=== PATIENT | male | born 1995 | race Two or more races ===

== ENCOUNTER 2021-03-23 18:14 | Emergency (ER) | payer SELFPAY ==
[~2021-03-23] VITALS: Ht 172.7 cm; Wt 97.0 kg
[2021-03-23 20:24] VITALS: BP 116/81
--- NOTE | 2021-03-23 20:24 | PHYS DOC ---
General Adult EDM: Chief Complaint: ANKLE PROBLEM HPI: HPI: Patient is a 25-year-old male presenting for right ankle injury. Patient is Malay-speaking only and history was obtained by myself with assistance using blue telephone law office assistant. Reports injury onset was yesterday evening while playing soccer. He suffered an inversion type ankle injury with right lateral ankle pain that is persisted. He is not taking anything since injury for this pain. Pain with palpation to right ankle and weightbearing makes worse, rest makes better. He has no other medical conditions, takes no medications on a daily basis Review of Systems: Review of Systems: Fourteen body systems of review of systems have been reviewed. See HPI for pertinent positives and negative responses, other parsons all other systems are negative, non-pertinent or non-contributory Heart Score: C/O Chest Pain: No Risk Factors: Risk Factors: DM, Current or recent (<one month) smoker, HTN, HLP, family history of CAD, obesity. Risk Scores: Score 0 - 3: 2.5% MACE over next 6 weeks - Discharge Home Score 4 - 6: 20.3% MACE over next 6 weeks - Admit for Clinical Observation Score 7 - 10: 72.7% MACE over next 6 weeks - Early Invasive Strategies Physical Exam: PE: Constitutional: Well developed, well nourished, no acute distress, non-toxic appearance. HENT: Normocephalic, atraumatic, bilateral external ears normal, oropharynx moist, no oral exudates, nose normal. Eyes: PERRLA, EOMI, conjunctiva normal, no discharge. Neck: Normal range of motion, no tenderness, supple, no stridor. Cardiovascular: Heart rate regular per monitor Lungs & Thorax: No respiratory distress or accessory muscle use, bilateral chest rise Abdomen: Abdomen soft, non-tender, bowel sounds present in all quadrants, no guarding or rebound, nonacute abdomen. Skin: Warm, dry, no erythema, no rash. Back: No tenderness, no CVA tenderness. Extremities: No tenderness, no cyanosis, no clubbing, ROM intact, no edema. Bilateral Feet and Ankles unless otherwise noted: Proximal Tibia nontender Medial malleolus nontender Lateral malleolus on right tender with palpation Calcaneus nontender Tarsometatarsal region nontender Base of 5th nontender Rest of foot and ankle without marked tenderness Varus and Valgus Stress of ankle joint without significant laxity Full Range of Motion with full strength Skin on plantar section of midfoot without ecchymosis Capillary refill <2seconds and distal Sensation to light touch in tact per routine Compartments surrounding are soft Neurologic: Alert and oriented X 3, grossly normal motor & sensory function, no focal deficits noted. Psychologic: Affect normal, judgement normal, mood normal. Current Patient Data: Vital Signs: Vital Signs Date Time Temp Pulse Resp B/P (MAP) Pulse Ox O2 Delivery O2 Flow Rate FiO2 03/23/21 20:24 98.8 89 16 116/81 (93) 97 Room Air 98.8 Vital Signs Date Time Temp Pulse Resp B/P (MAP) Pulse Ox O2 Delivery O2 Flow Rate FiO2 03/23/21 20:24 98.8 89 16 116/81 (93) 97 Room Air 98.8 EKG: EKG: [] Radiology/Procedures: Radiology/Procedures: Three-view right ankle radiographs 03/23/2021 CLINICAL HISTORY: Inversion injury to the right ankle. AP, oblique and lateral digital radiographs of the right ankle were obtained. The right ankle mortise is intact. Soft tissue swelling is seen adjacent to the lateral malleolus of the right ankle. No fracture or dislocation of the right ankle is seen. IMPRESSION: No fracture or dislocation of the right ankle is seen. Electronically signed by: Miki Palumbo MD (03/23/2021 9:20 PM) [id number] Course & Med Decision Making: Course & Med Decision Making ABCs unremarkable HPI physical exam and comprehensive ER work-up nonconcerning for any emergent or surgical issues Negative radiograph of right ankle. Supportive care practices advised with close outpatient follow-up Karthikeyan Disclaimer: Karthikeyan Disclaimer: This electronic medical record was generated, in whole or in part, using a voice recognition dictation system. Departure Departure Impression: Primary Impression: Right ankle pain Disposition: HOME / SELF CARE / HOMELESS Condition: STABLE Referrals: NO PCP (PCP) Patient Instructions: Ankle Exercises, Generic-SportsMed, Ankle Sprain, Acute, with Phase I Rehab-SportsMed JANET BIRMINGHAM DO Mar 23, 2021 20:24
--- NOTE | 2021-03-23 21:22 | RAD ---
Three-view right ankle radiographs 03/23/2021 CLINICAL HISTORY: Inversion injury to the right ankle. AP, oblique and lateral digital radiographs of the right ankle were obtained. The right ankle mortise is intact. Soft tissue swelling is seen adjacent to the lateral malleolus of the right ankle. No fra cture or dislocation of the right ankle is seen. IMPRESSION: No fracture or dislocation of the right ankle is seen. Electronically signed by: Miki Palumbo MD (03/23/2021 9:20 PM) [id number]
== END 2021-03-23 21:40 | disposition home or self-care (01) ==
LOC: ER 18:14
DX: M25.571 Pain in right ankle and joints of right foot (principal); G89.11 Acute pain due to trauma; X50.9XXA Other and unspecified overexertion or strenuous movements or postures, initial encounter; Y93.66 Activity, soccer; Y92.89 Other specified places as the place of occurrence of the external cause; Y99.8 Other external cause status
CPT/HCPCS: 73610; 99283